=== PATIENT | female | born 1980 | race Two or more races ===

== ENCOUNTER 2021-11-25 15:51 | Outpatient (CLI) | payer OTHER | END 2021-11-25 16:01 | disposition home or self-care (01) | LOC: LAB 15:51 | DX: E03.9 Hypothyroidism, unspecified (principal); E66.9 Obesity, unspecified; E11.8 Type 2 diabetes mellitus with unspecified complications; I10 Essential (primary) hypertension; N95.9 Unspecified menopausal and perimenopausal disorder ==

== ENCOUNTER 2022-02-03 12:20 | Outpatient (CLI) | payer OTHER | END 2022-02-03 12:22 | disposition home or self-care (01) | LOC: LAB 12:20 | PROVIDERS: ATTEND Obstetrics & Gynecology | DX: N92.5 Other specified irregular menstruation (principal) ==

== ENCOUNTER 2022-05-19 14:48 | Outpatient (CLI) | payer OTHER | END 2022-05-19 14:55 | disposition home or self-care (01) | LOC: LAB 14:48 | DX: E01.8 Other iodine-deficiency related thyroid disorders and allied conditions (principal); E16.2 Hypoglycemia, unspecified; E78.2 Mixed hyperlipidemia; E55.9 Vitamin D deficiency, unspecified; R97.1 Elevated cancer antigen 125 [CA 125]; R53.1 Weakness; E66.01 Morbid (severe) obesity due to excess calories ==

== ENCOUNTER 2022-05-23 12:11 | Outpatient (CLI) | payer OTHER | END 2022-05-23 12:22 | disposition home or self-care (01) | LOC: MAMO-SONO 12:11 | PROVIDERS: ATTEND Obstetrics & Gynecology | DX: Z12.31 Encounter for screening mammogram for malignant neoplasm of breast (principal); N64.4 Mastodynia; N63.0 Unspecified lump in unspecified breast ==

== ENCOUNTER → 2022-12-28 11:43 | Outpatient (CLI) | payer OTHER | END | disposition home or self-care (01) | LOC: LAB 11:43 | DX: E03.9 Hypothyroidism, unspecified (principal); E66.9 Obesity, unspecified; E11.8 Type 2 diabetes mellitus with unspecified complications; I10 Essential (primary) hypertension; N95.9 Unspecified menopausal and perimenopausal disorder ==

== ENCOUNTER 2023-06-01 11:53 | Outpatient (CLI) | payer OTHER ==
[2023-06-01 13:36] LABS: HEMATOCRIT 38.1 % (36.0-45.00); MEAN CELL VOLUME 90.4 fL (80.00-100.00); MEAN CORPUSCULAR HEMOGLOBIN 30.9 pg (27.00-32.0); MEAN CORPUSCULAR HGB CONC 34.1 g/dl (32.0-36.0); PLATELET COUNT 270 K/uL (150-450); RED BLOOD COUNT 4.21 M/uL (4.00-6.00); RED CELL DISTRIBUTION WIDTH 13.9 % (11.5-14.5)
[2023-06-01 13:58] LABS: INR 0.96
[2023-06-01 14:01] LABS: ALBUMIN 4.3 gm/dL (3.4-5.0); BILIRUBIN TOTAL 0.25 mg/dL (0.3-1.2); CALCIUM 9.5 mg/dL (8.5-10.1); CREATININE SERUM 0.56 mg/dL (0.55-1.02); GFR 117.07; GLOBULINA 3.2 G/DL (2.4-3.5); POTASSIUM 4.15 mEq/L (3.5-5.1); TOTAL PROTEIN 7.5 gm/dL (6.4-8.2)
== END 2023-06-01 12:19 | disposition home or self-care (01) ==
LOC: LAB 11:53
DX: Z01.818 Encounter for other preprocedural examination (principal); Z01.811 Encounter for preprocedural respiratory examination